=== PATIENT | female | born 1980 | race Two or more races ===

== ENCOUNTER 2019-04-12 07:04 | Emergency (ER) | payer SELFPAY ==
[~2019-04-12] VITALS: Ht 157.5 cm; Wt 52.2 kg
[2019-04-12 07:26] VITALS: BP 124/74
== END 2019-04-12 07:53 | disposition home or self-care (01) ==
LOC: ER 07:08
DX: T63.481A Toxic effect of venom of other arthropod, accidental (unintentional), initial encounter (principal); E78.00 Pure hypercholesterolemia, unspecified; Y92.89 Other specified places as the place of occurrence of the external cause